=== PATIENT | male | born 1965 | race Two or more races ===

== ENCOUNTER 2016-10-22 23:09 | Emergency (ER) | payer SELFPAY ==
[~2016-10-22] VITALS: Ht 175.3 cm; Wt 108.9 kg
[2016-10-23 03:59] VITALS: BP 122/79
== END 2016-10-23 04:00 | disposition home or self-care (01) ==
LOC: ER 23:12
DX: F10.129 Alcohol abuse with intoxication, unspecified (principal); R40.4 Transient alteration of awareness
CPT/HCPCS: 36415; 70450; 82962; 99285; A4606; G0481; Z7610; G6040-TC